=== PATIENT | female | born 1975 | race American Indian/Alaskan Native ===

== ENCOUNTER 2019-04-28 12:53 | Outpatient (CLI) | payer MEDICAID ==
--- NOTE | 2019-04-28 14:39 | XRay Report ---
LEFT FOOT 3 VIEW(S) INDICATION / CLINICAL INFORMATION: 5TH TOE SWELLING AND PAIN COMPARISON: None available. FINDINGS: BONES / JOINT(S): There is subtle lucency in the medial aspect of the base of the proximal phalanx of the left 5th toe which could represent nondisplaced fracture. Mild degenerative arthrosis at the 1st MTP and 5th MTP joints. SOFT TISSUES: Mild to moderate soft tissue swelling over the lateral aspect of the foot at the level of the 5th MTP joint. ADDITIONAL FINDINGS: None. Signer Name: Yaron Toney MD Signed: 04/28/2019 2:35 PM Workstation Name: [id number]
== END 2019-04-28 12:54 | disposition home or self-care (01) ==
LOC: XRAY 12:53
PROVIDERS: ATTEND Internal Medicine
DX: R22.42 Localized swelling, mass and lump, left lower limb (principal)